=== PATIENT | female | born 1975 | race African-American/Black ===

== ENCOUNTER 2017-04-15 11:59 | Emergency (ER) | payer OTHER ==
[~2017-04-15] VITALS: Ht 172.7 cm; Wt 81.6 kg
[2017-04-15 13:29] VITALS: BP 130/86
[2017-04-15] MEDS ORDERED: TETANUS-DIPTH-ACEL PERTUSSIS 0.5ML SYRG IM ONE (14:00)
== END 2017-04-15 14:40 | disposition home or self-care (01) ==
LOC: EDBD 11:59 → ER 11:59
DX: S20.219A Contusion of unspecified front wall of thorax, initial encounter (principal); S40.021A Contusion of right upper arm, initial encounter; S40.022A Contusion of left upper arm, initial encounter; Y08.89XA Assault by other specified means, initial encounter; Y93.89 Activity, other specified; Y99.8 Other external cause status; Y92.89 Other specified places as the place of occurrence of the external cause
CPT/HCPCS: 71020; 90471; 90715; 93005

== ENCOUNTER 2019-04-29 05:53 | Emergency (ER) | payer OTHER ==
[~2019-04-29] VITALS: Ht 172.7 cm; Wt 88.5 kg
[2019-04-29] MEDS ORDERED: IBUPROFEN 600 MG TAB PO ONE (06:45)
[2019-04-29 06:54] LABS: Basophils # (auto) 0.1 uL; Basophils % (auto) 0.9 % (0.0-2.0); Eosinophils # (auto) 0.1 uL; Hematocrit 42.2 % (36.0-46.0); Hemoglobin 13.9 g/dL (12.2-16.2); Lymphocytes # (auto) 1.8 uL; Lymphocytes % (auto) 24.7 % (10.0-50.0); Mean Corpuscular Hemoglobin 29.8 pg (28.0-32.0); Mean Corpuscular Hgb Conc. 32.8 g/dL (32.0-36.0); Mean Corpuscular Volume 90.7 fL (80.0-100.0); Monocytes # (auto) 0.5 uL; Monocytes % (auto) 6.6 % (0.0-12.0); Neutrophils # (auto) 4.8 uL; Neutrophils % (auto) 65.8 % (37.0-80.0); Platelet Count (auto) 377 10^3/uL (140-450); Red Blood Cells 4.65 10^6/uL (4.0-5.20); Red Cell Distribution Width 13.5 % (11.8-14.3); White Blood Cell 7.2 10^3/uL (4.4-10.8)
[2019-04-29 07:01] LABS: Albumin 3.7 g/dL (3.4-5.0); Anion Gap 6 (5-15); Blood Urea Nitrogen 8 mg/dL (7-18); Calcium 8.7 mg/dL (8.5-10.1); Carbon Dioxide 25 mmol/L (21-32); Chloride 113 mmol/L (98-107); Glucose 90 mg/dL (74-106); Magnesium 2.3 mg/dL (1.6-2.6); Potassium 4.1 mmol/L (3.5-5.1); Sodium 144 mmol/L (136-145)
[2019-04-29 07:07] LABS: Alanine Aminotransferase 16 U/L (13-56); Alkaline Phosphatase 74 U/L (45-117); Aspartate Aminotransferase 10 U/L (15-37); BUN/Creatinine Ratio 9.3; Bilirubin, Total 0.2 mg/dL (0.2-1.0); GFR African American 93 mL/min; GFR Non-African American 77 mL/min; Total Protein 7.4 g/dL (6.4-8.2)
[2019-04-29 09:32] VITALS: BP 124/84
== END 2019-04-29 10:00 | disposition home or self-care (01) ==
LOC: ER 05:54
DX: F41.9 Anxiety disorder, unspecified (principal); R09.1 Pleurisy
CPT/HCPCS: 36415; 71045; 80053; 83735; 84484; 85025; 93005

== ENCOUNTER → 2020-01-12 | Emergency (ER) | payer OTHER ==
[~2020-01-12] VITALS: Ht 172.7 cm; Wt 2.5 kg
[2020-01-12 16:56] VITALS: BP 116/77
[2020-01-12 17:05] LABS: Basophils # (auto) 0.1 10 ^3/uL (0-0.2); Lymphocytes # (auto) 1.6 10 ^3/uL (0.4-5.4); Red Cell Distribution Width 15.9 % (11.8-14.3)
[2020-01-12 17:07] LABS: Basophils % (auto) 0.9 % (0.0-2.0); Eosinophils # (auto) 0.1 10 ^3/uL (0-0.8); Eosinophils % (auto) 1.2 % (0.0-7.0); Hematocrit 34.2 % (36.0-46.0); Hemoglobin 10.9 g/dL (12.2-16.2); Lymphocytes % (auto) 13.6 % (10.0-50.0); Mean Corpuscular Hgb Conc. 31.8 g/dL (32.0-36.0); Mean Corpuscular Volume 94.2 fL (80.0-100.0); Monocytes % (auto) 8.7 % (0.0-12.0); Neutrophils # (auto) 9.1 10 ^3/uL (1.6-8.6); Neutrophils % (auto) 75.6 % (37.0-80.0); Red Blood Cells 3.63 10^6/uL (4.0-5.20)
[2020-01-12 17:13] LABS: Albumin 3.2 g/dL (3.4-5.0); BUN/Creatinine Ratio 7.3; Calcium 8.7 mg/dL (8.5-10.1); Potassium 3.8 mmol/L (3.5-5.1)
[2020-01-12 17:16] LABS: Bilirubin, Total 0.4 mg/dL (0.2-1.0); Total Protein 7.2 g/dL (6.4-8.2)
[2020-01-12 17:19] LABS: INR 1.05 (0.9-1.15); Partial Thromboplastin Time 24.2 sec (23.64-32.05)
[2020-01-12 18:35] LABS: Platelet Count (auto) 843 10^3/uL (140-450)
== END | disposition left against medical advice (07) ==
LOC: ER 16:22
DX: M79.605 Pain in left leg (principal); Z53.21 Procedure and treatment not carried out due to patient leaving prior to being seen by health care provider
CPT/HCPCS: 36415; 80053; 85025; 85610; 85730

== ENCOUNTER 2024-04-06 07:39 | Emergency (ER) | payer OTHER ==
[~2024-04-06] VITALS: Ht 172.7 cm; Wt 84.1 kg
[2024-04-06 08:58] VITALS: BP 147/79; PULSE 84; RESP 16; TEMP 98.3; O2SAT 97
[2024-04-06] MEDS ORDERED: IBUP-1454 PO (09:11)
[2024-04-06] MEDS ORDERED: ONDA-155 PO (09:11)
[2024-04-06] MEDS ORDERED: ERY05OO OP (09:11)
[2024-04-06] MEDS ORDERED: AUG875T PO (09:11)
[2024-04-06] MEDS ORDERED: KETO0.5S31 EACHEYE (09:11)
[2024-04-06] MEDS ORDERED: PSEU120T18 PO (09:11)
[2024-04-06] MEDS ORDERED: LORA-483 PO (09:11)
[2024-04-06] MEDS ORDERED: CIPR0.3S67 OP (09:14)
== END 2024-04-06 09:21 | disposition home or self-care (01) ==
LOC: ER 07:39
DX: S05.02XA Injury of conjunctiva and corneal abrasion without foreign body, left eye, initial encounter (principal); S05.01XA Injury of conjunctiva and corneal abrasion without foreign body, right eye, initial encounter; B34.9 Viral infection, unspecified; Z79.1 Long term (current) use of non-steroidal anti-inflammatories (NSAID); Z79.899 Other long term (current) drug therapy; X58.XXXA Exposure to other specified factors, initial encounter; Y93.89 Activity, other specified; Y92.89 Other specified places as the place of occurrence of the external cause; Y99.8 Other external cause status

== ENCOUNTER 2024-06-20 17:40 | Emergency (ER) | payer OTHER ==
[~2024-06-20] VITALS: Ht 172.7 cm; Wt 80.8 kg
[~2024-06-20 17:40] MED LIST: AUG875T PO; CIPR0.3S67 OP; IBUP-1454 PO; KETO0.5S31 EACHEYE; LORA-483 PO; ONDA-155 PO; PSEU120T18 PO
[2024-06-20 17:55] VITALS: BP 125/68; PULSE 88; RESP 18; O2SAT 96
[2024-06-20] MEDS ORDERED: ONDANSETRON ODT 4 MG TAB PO ONE (18:15)
--- NOTE | 2024-06-23 14:01 | ECG ---
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
== END 2024-06-20 20:23 | disposition left against medical advice (07) ==
LOC: ER 17:40
DX: R07.89 Other chest pain (principal); R42 Dizziness and giddiness; R53.1 Weakness; R11.0 Nausea; Z53.21 Procedure and treatment not carried out due to patient leaving prior to being seen by health care provider
CPT/HCPCS: 93005